=== PATIENT | female | born 1985 | race Asian ===

== ENCOUNTER 2021-11-22 08:37 | Inpatient (IN) ==
[2021-11-22] MEDS ORDERED: Lactated Ringers 1000 ml BAG 1,000 ML IV ONE (09:55)
[2021-11-22] MEDS ORDERED: Buffered Lidocaine 1% SYRIN 1 ml INTRADERM ONE (09:55)
[2021-11-22 10:30] LABS: Urine Benzodiazepine Screen None Detected (None Detect); Urine Cannabinoids Screen None Detected (None Detect); Urine Opiates Screen None Detected (None Detect)
[2021-11-22] MEDS ORDERED: Penicillin G Potassium IV 5,000,000 UNITS in NS 0.9% 100 ml BAG 100 ML IVPB ONE (10:38)
[2021-11-22] MEDS ORDERED: Promethazine INJ(RESTRICTED) 25 MG/ML 1 ml VIAL IV ONE ×2 (11:59→20:50)
[2021-11-22] MEDS ORDERED: Nalbuphine 10 MG/ML 1 ML VIAL IV ONE ×2 (11:59→20:50)
[2021-11-22 12:25] LABS: ABS Lymphocytes 1.1 10^3/ul (1.0-4.8); ABS Monocytes 0.6 10^3/ul (0-0.8); Eosinophil % 0.4 %; Hematocrit 36 % (35-47); Hemoglobin 12.2 g/dL (12.0-16.0); Lymphocyte % 10.8 %; Mean Corpuscular HGB Conc 34 g/dL (31-36); Mean Corpuscular Hemoglobin 32 pg (27-31); Mean Corpuscular Volume 95 fL (80-97); Mean Platelet Volume 8.6 fL (7.4-10.4); Platelet Count 166 10^3/uL (150-450); Red Blood Count 3.82 10^6 /uL (3.70-4.87); Red Cell Distribution Width 14 % (10-15); White Blood Count 9.7 10^3/uL (3.5-10.8)
[2021-11-23] MEDS ORDERED: OBEPIDURAL (200 ML) 200 ML EPIDURAL ONE (00:36)
[2021-11-23] MEDS: Lactated Ringers 1000 ml BAG 1,000 ML IV SCH ×2 (00:50→04:14)
[2021-11-23] MEDS ORDERED: Sodium Citrate/Citric Acid LIQ 15 ML UDC PO PRN (01:43)
[2021-11-23] MEDS ORDERED: Lactated Ringers 1000 ml BAG 1,000 ML IV ONE (01:43)
[2021-11-23] MEDS ORDERED: Phenylephrine 40 mcg/mL 10mL (400mcg) SYRINGE IV PUSH PRN ×2 (01:43)
[2021-11-23] MEDS ORDERED: Lactated Ringers 1000 ml BAG 500 ML IV PRN ×2 (01:43)
[2021-11-23] MEDS ORDERED: Lactated Ringers 1000 ml BAG 1,000 ML IV SCH ×2 (02:00→16:00)
[2021-11-23] MEDS ORDERED: OBEPIDURAL (200 ML) 200 ML EPIDURAL SCH (02:00)
[2021-11-23 02:29] LABS: Urine Appearance Clear; Urine Bilirubin Negative (Negative); Urine Blood Trace (Intact) (Negative); Urine Color Yellow; Urine Glucose Negative (Negative); Urine Ketones Trace (Negative); Urine Nitrite Negative (Negative); Urine Protein Negative (Negative); Urine Urobilinogen 0.2 (Negative) (Negative)
[2021-11-23 02:51] LABS: Urine Bacteria Absent (Absent); Urine Red Blood Cell 1+(3-5/hpf) (Absent); Urine White Blood Cell Trace(0-5/hpf) (Absent)
[2021-11-23] MEDS: Penicillin G Potassium IV 3,000,000 UNITS in NS 0.9% 100 ml BAG 100 ML IVPB SCH ×4 (03:02→19:47)
[2021-11-23] MEDS ORDERED: Oxytocin in LR 20,000 MILLI.UNIT/1,000 ML BAG IV SCH ×2 (08:15→15:15)
[2021-11-23] MEDS ORDERED: Witch Hazel PAD JAR TOPICAL PRN (15:15)
[2021-11-23] MEDS ORDERED: Dibucaine 1% OINT 28.35 GM TUBE PR PRN (15:15)
[2021-11-23] MEDS ORDERED: Lidocaine 1% VIAL 10 MG/ML VIAL ONE (17:37)
[2021-11-24 06:01] LABS: ABS Eosinophils 0.1 10^3/ul (0-0.6); ABS Lymphocytes 1.9 10^3/ul (1.0-4.8); ABS Monocytes 0.9 10^3/ul (0-0.8); ABS Neutrophils 6.7 10^3/ul (1.5-7.7); Eosinophil % 1.3 %; Hematocrit 32 % (35-47); Hemoglobin 10.6 g/dL (12.0-16.0); Lymphocyte % 19.3 %; Mean Corpuscular HGB Conc 33 g/dL (31-36); Mean Corpuscular Hemoglobin 31 pg (27-31); Mean Corpuscular Volume 95 fL (80-97); Mean Platelet Volume 8.1 fL (7.4-10.4); Platelet Count 141 10^3/uL (150-450); Red Cell Distribution Width 14 % (10-15); White Blood Count 9.6 10^3/uL (3.5-10.8)
[2021-11-25 08:53] VITALS: BP 102/68
== END 2021-11-25 16:45 | disposition home or self-care (01) | DRG 560 ==
LOC: MCHOBOUT 08:37 → MCHOB 09:47
PROVIDERS: ADMIT Midwife; ATTEND Midwife